=== PATIENT | female | born 1945 | race Caucasian/White ===

== ENCOUNTER 2018-09-09 06:51 | Observation (INO) | payer MEDICARE, BC ==
[~2018-09-09] VITALS: Ht 165.1 cm; Wt 79.8 kg
[~2018-09-09 06:51] MED LIST: ALIVE PO; AMLODIPINE BESY10 MG PO; ATENOLOL50 MG PO; BRIMONIDINE TAR10 ML OP; CRESTOR10 MG PO; FERROUS SULFAT325 M1 PO; LEVOTHYROXINE100 MC1 PO; METFORMIN HCL500 MG PO; ROPIVACAINE 246.25 MG, EPINEPHRINE HCL 1:1000 1ML 0.5 MG, CLONIDINE HCL 0.08 MG, KETORO... INJ ONE
[2018-09-09] MEDS ORDERED: CEFAZOLIN SOD 2 GM/D5W 50ML 50 ML IV ONE (08:33)
[2018-09-09] MEDS ORDERED: CELECOXIB 200 MG CAP ONE (08:33)
[2018-09-09] MEDS ORDERED: DEXAMETHASONE SOD PHOS 10 MG/1 ML VIAL ONE (08:34)
[2018-09-09] MEDS ORDERED: GABAPENTIN 300 MG CAP ONE (08:34)
[2018-09-09] MEDS ORDERED: SODIUM CHLORIDE 0.9% 500ML 500 ML ONE (10:19)
[2018-09-09] MEDS ORDERED: VANCOMYCIN HCL 1,000 MG ONE (10:19)
[2018-09-09] MEDS ORDERED: TRANEXAMIC ACID 1,000 MG/10 ML ML ONE (10:20)
[2018-09-09] MEDS ORDERED: BACITRACIN 50,000 UNIT VIAL ONE (10:20)
--- NOTE | 2018-09-09 10:36 | NUR ---
PATIENT DME AND HOME HEALTH COMPANIES PRE-ARRANGED BY DR. BRENNER'S OFFICE. PATIENT WITH HOME HEALTH AND DME CONTACT INFORMATION. PATIENT AWARE TO CALL CM IF ANY PROBLEMS OCCUR WITHIN 3 DAYS POST- DISCHARGE. HOME HEALTH EXPLAINED IN DEPTH WITH SERVICES PROVIDED. PATIENT VERBALLY UNDERSTOOD. THE FOLLOWING HOME HEALTH AND DME COMPANY VERIFIED PATIENT IS ON SERVICE WITH THEM: [facility] (P)[phone] (F) [phone] CM SPOKE TO EMANUEL AND CONFIRMED PATIENT TO BE SEEN ONE DAY POST DISCHARGE. [facility] (P) [phone] (F) [phone] CM SPOKE TO ETTERS AND CONFIRMED [facility] WILL DELIVER EQUIPMENT TO PATIENT BEDSIDE PRIOR TO DISCHARGE TOMORROW. Addendum: 09/10/18 at 1213 by Nichelle Coleman CM CHOICE SIGNED AND PLACED IN CHART
[2018-09-09] MEDS ORDERED: ACETAMINOPHEN 650 MG SUPP PR PRN (11:45)
[2018-09-09] MEDS ORDERED: KETOROLAC TROMETHAMINE 30 MG/ML VIAL IV PRN ×2 (11:45→13:00)
[2018-09-09] MEDS ORDERED: ONDANSETRON HCL INJ 2MG/ML 2ML 2 MG/ML VIAL IV PRN (11:45)
[2018-09-09] MEDS ORDERED: PROMETHAZINE HCL (IM) 25 MG/ML VIAL INJ PRN (11:45)
[2018-09-09] MEDS ORDERED: DOCUSATE SODIUM 100 MG CAP PO PRN (11:45)
[2018-09-09] MEDS ORDERED: DIPHENHYDRAMINE HCL INJ 50 MG/ML VIAL IM/IV PRN (11:45)
[2018-09-09] MEDS ORDERED: ZOLPIDEM TARTRATE 5 MG TAB PO PRN (11:45)
[2018-09-09] MEDS ORDERED: HYDROCODONE/APAP 7.5MG-325MG 1 EA TAB PO PRN (11:45)
[2018-09-09] MEDS ORDERED: MORPHINE SULFATE INJ 4 MG/ML INJ 1ML ONE (12:25)
--- NOTE | 2018-09-09 12:37 | NUR ---
RECEIVED REPORT FROM JAILYN IN PACU AWAITING FOR PT TO ARRIVE TO FLOOR
--- NOTE | 2018-09-09 12:39 | Diagnostic Imaging Report ---
Knee radiographs-2 views History: Postoperative. Findings: Status post right total knee arthroplasty and patellar resurfacing with prosthetic components in anatomic alignment. Overlying subcutaneous emphysema, edema, and surgical skin radha are present. IMPRESSION: Status post right total knee arthroplasty as above. Signed by: Dr. Argelia Bach MD on 09/09/2018 12:36 PM
[2018-09-09 12:50] VITALS: BP 121/58
--- NOTE | 2018-09-09 12:50 | NUR ---
PT ARRIVED TO FLOOR [id number]. SISTER IS AT BEDSIDE PT C/O PAIN TO RIGHT KNEE 11/22 PT RECEIVED FENTANYL AND MORPHINE RIGHT BEFORE TRANSFER TO FLOOR. WILL HOLD OFF ON PAIN MED FOR NOW RIGHT KNEE IS DRESSED AND COVERED WITH KAYLYN. DRY AND INTACT PEDAL PULSES PRESENT BILATERALLY FOOT PUMPS PRESENT AND CONNECTED TO PUMP LEFT LEG CARA PRESENT IV TO THE RIGHT HAND WITH LR CURRENTLY RUNNING SITE IS CLEAN AND DRY PLACED PT ON 02 2L DUE TO LOW SATS OF 85% UPON ARRIVAL. PT DENIES SOB. PT SAT AFTER 2L O2 ARE 95% WILL CONTINUE TO MONITOR PT CLOSELY, SIDE RAILSX2, BED WHEELS LOCKED, CALL LIGHT IS WITHIN EASY REACH INSTRUCTED TO CALL FOR ASSISTANCE IF NEEDED
[2018-09-09 12:55] VITALS: BP 121/58
[2018-09-09] MEDS ORDERED: EPINEPHRINE HCL 1:1000 1ML 1 MG/ML AMP ONE (13:01)
[2018-09-09] MEDS ORDERED: ROPIVACAINE 0.5% 5 MG/ML 30 ML SDV ONE (13:01)
--- NOTE | 2018-09-09 13:14 | NUR ---
NOTIFIED MD MAJOR REGARDING PT ARRIVAL MD MOHAN RESUMPTION OF HOME MEDS AND ORDER TO START PT ON GLUCOSE CHECK FOR PT HX OF DM ORDERS RECEIVED
[2018-09-09] MEDS: SODIUM CHLORIDE 0.9% 1000ML 1,000 ML IV SCH ×2 (13:25→21:18)
[2018-09-09] MEDS: ACETAMINOPHEN 1000 MG/100 ML IV SCH ×3 (13:25→23:32)
[2018-09-09] MEDS ORDERED: FENTANYL CITRATE/PF 100MCG/2 ML INJ ONE (13:31)
[2018-09-09] MEDS ORDERED: MIDAZOLAM HCL 2 MG/2 ML VIAL ONE (13:31)
--- NOTE | 2018-09-09 14:10 | NUR ---
Visit made by the Spiritual Care Department Pastoral Visitor, Allyson Calzada. PV provided pastoral presence, prayer, hospitality, and supportive listening. Pastoral Visitor informed pt/family of the scope of Associate Artistic Director Services and availability. EVA MONACO Director Of Government Sales Spiritual Care Department O: [phone] Pager: [phone] ([phone] number calling from)
[2018-09-09] MEDS: CEFAZOLIN SOD 1 GM/NS 50ML 50 ML IV SCH ×2 (14:41→21:24)
[2018-09-09 16:46] VITALS: BP 107/56
[2018-09-09] MEDS: ASPIRIN 325 MG TAB PO SCH (16:46)
[2018-09-09] MEDS: CELECOXIB 100 MG CAP PO SCH (16:46)
[2018-09-09] MEDS: FERROUS SULFATE 325 MG TAB PO SCH (16:46)
--- NOTE | 2018-09-09 17:07 | NUR ---
pt voided into toiled after sx
[2018-09-09] MEDS ORDERED: LIDOCAINE HCL 2% LOCAL INJ 5 ML SDV VIAL INJ ONE (17:12)
[2018-09-09] MEDS ORDERED: DEXAMETHASONE SOD PHOS INJ 4 MG/ML VIAL ONE (17:12)
[2018-09-09] MEDS ORDERED: ONDANSETRON HCL INJ 2MG/ML 2ML 2 MG/ML VIAL ONE (17:12)
[2018-09-09] MEDS ORDERED: PROPOFOL IV EMULSION 10 MG/ML 20 ML VIAL ONE (17:12)
[2018-09-09] MEDS ORDERED: SEVOFLURANE INHAL SOLN 250 ML PEN BTL ONE (17:12)
--- NOTE | 2018-09-09 18:09 | Operative Report ---
DATE OF PROCEDURE: 09/09/2018 SURGEON: Brayden Nicole MD INVENTORY MANAGEMENT SPECIALIST: Kurt Onofre, Certified PA. PREOPERATIVE DIAGNOSIS: Osteoarthritis, right knee. POSTOPERATIVE DIAGNOSIS: Osteoarthritis, right knee. PROCEDURE: Right total knee arthroplasty. INDICATIONS: The patient is a 72-year-old lady, who has end-stage arthritis of her right knee. She has failed conservative management and would like to proceed with a right total knee replacement. The risks and benefits have been discussed. The recovery has been explained. She states she understands and wishes to proceed. DESCRIPTION OF PROCEDURE: The patient was brought to the operating room and placed under general anesthetic. She received a regional block, tranexamic acid and prophylactic antibiotics in the holding area. Her right lower extremity was prepped and draped in a sterile manner. A preoperative time-out was performed. The extremity was exsanguinated and a proximal tourniquet was inflated to 300 mmHg. An anterior approach with a medial parapatellar arthrotomy was performed. Abundant subcutaneous adipose tissue was encountered. Minimal dissection was performed to decrease the potential for space. The knee was brought up into flexion with the patella everted. Meniscal remnants and marginal osteophytes were removed. Complete loss of articular cartilage primarily involving the patellofemoral joint was noted. The anterior cruciate ligament was sacrificed. A David and Nephimedo Knee System was used. An extramedullary cutting guide was used to resect the proximal tibia. The tibial cut was referenced off the lateral compartment. The tibial base plate was a size #4. The central fin punch was impacted and attention was directed towards the distal femur. An intramedullary cutting guide was used to resect the distal femur in 5 degrees of valgus and external rotation referencing off a combination of landmarks including Whitesides line, the epicondylar axis and the posterior condyles. The femoral component was a size #5. The anterior and posterior cuts were made. Trial reductions were performed. A 9 mm ultracongruent tibial insert provided appropriate soft tissue balancing in both full extension and 90 degrees of flexion. The patella was resurfaced with a 35 mm x 9 mm patellar button. The thickness was checked before and after and was right around 24 mm. Patellar tracking was noted to be concentric. The trial implants were then all removed. A 100 mL premixed pericapsular MISSY injection was placed into the surrounding soft tissue. The knee was thoroughly irrigated with a shower tip pulsatile lavage. All cuts had been irrigated with a spray bottle with a mixture of diluted polymyxin and vancomycin spray. The components were cemented into place using a single mix of Palacos cement preloaded with antibiotics. Care was taken to remove all extravasated cement. The wound was further irrigated while the cement cured. A 500 mg of vancomycin powder were then sprinkled into the joint. The arthrotomy was carefully closed with interrupted #1 Ethibond. The knee was put through flexion and extension to ensure a secure closure. The skin was closed with subcuticular Vicryl and radha. A sterile Aquacel bandage and an Fer wrap were applied. The patient was extubated and transported to the recovery room in stable condition. Blood loss was minimal. All needle and sponge counts were correct. Brayden Nicole MD DR/LAMAR /[id number]
--- NOTE | 2018-09-09 20:10 | NUR ---
Aaox4.assessment done.no resp.distress.no pain voiced.sponge bath given.voided .tolerate the cpm@flexion degree 70.right knee dressing is dry .tolerated the diet.bed locked and in lowest position.phone and call light within reach.instructed to call for assistance as needed.
[2018-09-09 20:47] VITALS: BP 130/65
[2018-09-09 21:00] VITALS: BP 130/65
[2018-09-09] MEDS ORDERED: ATENOLOL 50 MG TAB PO SCH (21:00)
[2018-09-09] MEDS ORDERED: SIMVASTATIN 40 MG TAB PO SCH (21:00)
[2018-09-09] MEDS ORDERED: SIMVASTATIN 20 MG TAB PO SCH (21:00)
[2018-09-10] VITALS: BP 119/60
[2018-09-10 04:00] VITALS: BP 141/70
[2018-09-10] MEDS: CEFAZOLIN SOD 1 GM/NS 50ML 50 ML IV SCH (05:30)
[2018-09-10] MEDS: ACETAMINOPHEN 1000 MG/100 ML IV SCH (05:49)
--- NOTE | 2018-09-10 05:52 | Consultation ---
DATE OF CONSULTATION: REASON FOR CONSULTATION: Postop medical management. HISTORY OF PRESENT ILLNESS: The patient is a 72-year-old lady, status post total knee arthroplasty of the right knee for incisional osteoarthritis, who is doing very well postoperatively with minimal pain and denies any fever, chills, nausea, vomiting, chest pain, shortness of breath, headache, or dizziness. PAST MEDICAL HISTORY: Significant for hyperlipidemia, hypertension, diabetes, and hypothyroidism. MEDICATIONS: See MAR. ALLERGIES: SULFA. SOCIAL HISTORY: Nonsmoker. . FAMILY HISTORY: Asthma. PHYSICAL EXAMINATION: VITAL SIGNS: Temperature 97.0, pulse 61, blood pressure 141/70, and sats 96% on room air. GENERAL: No apparent distress. NECK: Supple. No lymphadenopathy. CARDIOVASCULAR: Regular rate and rhythm. LUNGS: Clear to auscultation bilaterally. ABDOMEN: Good bowel sounds. Soft and nontender. EXTREMITIES: No clubbing or cyanosis. NEUROLOGIC: Nonfocal. ASSESSMENT AND PLAN: 1. Right knee pain. We will continue the postoperative care and physical therapy. 2. Anemia. Check CBC. 3. Hypertension. Continue with her home medication. 4. Hyperlipidemia. Continue with her statin drug. 5. Hypothyroidism. Continue with thyroid medicine. 6. Diabetes. Continue with her diabetic medicine and monitoring of her sugars. Please see hospital chart for details. MD DULCE Underwood/LAMAR /[id number]
[2018-09-10] MEDS ORDERED: LEVOTHYROXINE SODIUM 100 MCG TAB PO SCH (06:00)
--- NOTE | 2018-09-10 06:00 | NUR ---
CPM APPLIED @ FLEXION DEGREE 70.
[2018-09-10 06:28] LABS: HEMATOCRIT 30.9 % (34.2-44.1); HEMOGLOBIN 10.2 g/dL (12.0-16.0)
--- NOTE | 2018-09-10 07:00 | NUR ---
Report given to the on coming rn.walking rounds done.stable condition.
[2018-09-10] MEDS: SODIUM CHLORIDE 0.9% 1000ML 1,000 ML IV SCH (07:37)
[2018-09-10 08:08] VITALS: BP 175/79
[2018-09-10] MEDS ORDERED: ASPIRIN325 MG PO (08:28)
[2018-09-10] MEDS ORDERED: ONDANSETRON HCL 4 MG ORAL DISINTEGRATING TAB PO PRN (08:30)
[2018-09-10] MEDS: ASPIRIN 325 MG TAB PO SCH (08:52)
[2018-09-10] MEDS: CELECOXIB 100 MG CAP PO SCH (08:52)
[2018-09-10] MEDS: FERROUS SULFATE 325 MG TAB PO SCH (08:52)
--- NOTE | 2018-09-10 08:53 | NUR ---
MD BRENNER INTO SEE PT, DISCUSSED DISCHARGE INSTRUCTIONS, PT VERBALIZED UNDERSTANDING, CALL LIGHT WITHIN REACH
[2018-09-10 08:57] VITALS: BP 175/79
[2018-09-10] MEDS ORDERED: AMLODIPINE BESYLATE 10 MG TAB PO SCH (09:00)
[2018-09-10] MEDS ORDERED: METFORMIN HCL 500 MG TAB PO SCH (09:00)
[2018-09-10] MEDS ORDERED: SIMVASTATIN 40 MG TAB PO SCH (09:00)
[2018-09-10] MEDS ORDERED: BRIMONIDINE TARTRATE 0.15% OPTH DRPS 10ML BTL OP SCH (09:00)
[2018-09-10] MEDS: HYDROCODONE/APAP 5MG-325MG TAB PO PRN ×2 (10:21→14:15)
[2018-09-10] MEDS ORDERED: TYLENOL WITH C1 EACH PO (11:22)
[2018-09-10] MEDS ORDERED: ACETAMINOPHEN 1000 MG/100 ML IV PRN (11:45)
--- NOTE | 2018-09-10 12:07 | NUR ---
DWAINE SPOKE TO SARY WITH [facility] TO GIVE UPDATED ADDRESS AND NUMBERS FOR PATIENT. PATIENT PHYSICAL ADDRESS AND CONTACT INFORMATION: [address] [place] [address] C) [phone] (h) [phone] DWAINE CONFIRMS PATIENT DISCHARGE FOR TODAY. INFORMATION PRINTED AND GIVEN TO PATIENT FOR REFERENCE TO HH TREATMENTS AND CONTACT INFO WELL DME CONTACT INFORMATION Addendum: 09/10/18 at 1214 by Nichelle Coleman CM EQUIPMENT DELIVERED TO BEDSIDE BY [facility]
[2018-09-10 12:10] VITALS: BP 155/71
--- NOTE | 2018-09-10 14:27 | NUR ---
DISCHARGE INSTRUCTIONS REVIEWED WITH PT, VERBALIZED UNDERSTANDING, MEDICATED PER MD ORDER FOR 5/10 R KNEE PAIN, ALL PERSONAL BELONGINGS WITH PT ,WHEELED OUT VIA WC, NO CHANGE IN CONDITION
[2018-09-10] MEDS ORDERED: CELECOXIB 200 MG CAP PO SCH (17:00)
== END 2018-09-10 14:25 | disposition home health service (06) ==
LOC: OR 06:51 → PACU V 11:38 → MED/SURG 12:42
PROVIDERS: ADMIT Specialist; ATTEND Specialist
DX: M17.11 Unilateral primary osteoarthritis, right knee (principal); Z88.2 Allergy status to sulfonamides; E11.9 Type 2 diabetes mellitus without complications; I10 Essential (primary) hypertension; Z90.49 Acquired absence of other specified parts of digestive tract; Z82.5 Family history of asthma and other chronic lower respiratory diseases; E03.9 Hypothyroidism, unspecified; E78.5 Hyperlipidemia, unspecified; D64.9 Anemia, unspecified
CPT/HCPCS: 27447; 36415 ×2; 73560; 82948 ×2; 84132; 85014; 85018; 86850; 86900; 86920; 97116 ×2; 97161; 97530; C1713; G0378 ×2; J0131 ×2; J0171; J0690 ×3; J1100 ×2; J1885; J2001; J2250; J2270; J2405; J2704; J2795; J3370; J7030; J7040